=== PATIENT | female | born 1960 | race Caucasian/White ===

== ENCOUNTER → 2023-10-22 14:21 | Outpatient (REF) | payer MEDICARE, BC, SELFPAY | LOC: CLAB 14:21 | PROVIDERS: ATTENDING PHYSICIAN Otolaryngology | DX: H65.23 Chronic serous otitis media, bilateral (principal) | CPT/HCPCS: 87070; 87077; 87186 ==

== ENCOUNTER → 2023-12-04 10:54 | Outpatient (REF) | payer MEDICARE, BC, SELFPAY ==
[2023-12-04 12:08] LABS: % Basophils 0.4 % (0-2); % Eosinophils 2.2 % (0-6); % Immature Granulocytes 0.2 % (0-0.5); % Lymphocytes 25.6 % (20.5-51.1); % Monocytes 8.7 % (1.7-9.3); % Neutrophils 62.9 % (42.2-75.2); Absolute Eosinophils 0.2 10^3/uL (0-0.7); Absolute Lymphocytes 2.1 10^3/uL (1.2-3.4); Absolute Monocytes 0.7 10^3/uL (0.1-0.6); Absolute Neutrophils 5.3 10^3/uL (1.4-6.5); Hematocrit 47.8 % (37.0-47.0); Hemoglobin 15.9 g/dL (12.0-16.0); Mean Corp Hgb Conc. 33.3 g/dL (33.0-37.0); Mean Corpuscular Volume 90.2 fL (81.0-99.0); Mean Platelet Volume 9.9 fL (7.4-10.4); Nucleated Red Blood Cells % 0 %; Platelet Count 250 10^3/uL (130-400); White Blood Cell Count 8.4 10^3/uL (4.8-10.8)
[2023-12-04 12:23] LABS: Erythrocyte Sed Rate 8 mm/hour (0-20)
[2023-12-04 12:30] LABS: Microalbumin, Random Urine 1.9 mg/dl (0.6-1.7); Microalbumin/creatinine Ratio 11.5 mg/g
[2023-12-04 12:39] LABS: ALT (SGPT) 21 U/L (0-35); AST (SGOT) 20 U/L (14-36); Albumin 4.4 g/dl (3.5-5.0); Alkaline Phosphatase 143 U/L (38-126); Blood Urea Nitrogen 17 mg/dl (7-17); Calcium 9.7 mg/dl (8.4-10.2); Carbon Dioxide 26 mmol/L (22-30); Chloride 104 mmol/L (98-107); Glucose 89 mg/dl (70-99); HDL Cholesterol 49 mg/dl; LDL Cholesterol, Calculated 209 mg/dl; Potassium 5.5 mmol/L (3.5-5.1); Sodium 140 mmol/L (135-145); Total Bilirubin 0.4 mg/dl (0.2-1.3); Total Cholesterol 299 mg/dl (50-199); Total Protein 6.5 g/dl (6.3-8.2); Triglyceride 206 mg/dl (10-149); Very Low Density Lipoprotein 41 mg/dl (0-30); eGFR > 60.00
[2023-12-04 12:49] LABS: Total Iron Binding Capacity 267 ug/dl (265-497)
[2023-12-04 14:24] LABS: Glycohemoglobin (HgbA1c) 5.5 % (4.0-5.6)
== END ==
LOC: REG 10:54
PROVIDERS: ATTENDING PHYSICIAN Internal Medicine; FAMILY PHYSICIAN Family Medicine; OTHER PHYSICIAN Family Medicine
DX: L40.50 Arthropathic psoriasis, unspecified (principal); Z51.81 Encounter for therapeutic drug level monitoring; E78.2 Mixed hyperlipidemia; R73.03 Prediabetes; R74.8 Abnormal levels of other serum enzymes; E11.69 Type 2 diabetes mellitus with other specified complication; I10 Essential (primary) hypertension
CPT/HCPCS: 36415; 80053; 80061; 82043; 82570; 83036; 83550; 85025; 85652; 86140

== ENCOUNTER → 2023-12-30 11:22 | Outpatient (REF) | payer MEDICARE, BC, SELFPAY ==
[2023-12-30 12:48] LABS: ALT (SGPT) 22 U/L (0-35); AST (SGOT) 19 U/L (14-36); Albumin 4.5 g/dl (3.5-5.0); Alkaline Phosphatase 138 U/L (38-126); Blood Urea Nitrogen 16 mg/dl (7-17); Calcium 9.8 mg/dl (8.4-10.2); Carbon Dioxide 25 mmol/L (22-30); Chloride 106 mmol/L (98-107); Glucose 107 mg/dl (70-99); Potassium 4.9 mmol/L (3.5-5.1); Sodium 140 mmol/L (135-145); Total Bilirubin 0.4 mg/dl (0.2-1.3); Total Protein 6.6 g/dl (6.3-8.2); eGFR > 60.00
[2024-01-01 23:02] LABS: Quantiferon Mitogen minus NIL 9.96 IU/mL; Quantiferon NIL 0.04 IU/mL; Quantiferon TB Gold Plus Negative (Negative)
== END ==
LOC: REG 11:22
PROVIDERS: ATTENDING PHYSICIAN Internal Medicine; FAMILY PHYSICIAN Family Medicine
DX: E87.5 Hyperkalemia (principal); L40.50 Arthropathic psoriasis, unspecified; Z22.7 Latent tuberculosis; Z51.81 Encounter for therapeutic drug level monitoring
CPT/HCPCS: 36415; 80053; 86480

== ENCOUNTER → 2024-02-17 12:47 | Outpatient (REF) | payer MEDICARE, BC, SELFPAY ==
[2024-02-17 15:03] LABS: % Basophils 0.4 % (0-2); % Eosinophils 1.7 % (0-6); % Immature Granulocytes 0.2 % (0-0.5); % Lymphocytes 25.1 % (20.5-51.1); % Monocytes 7.4 % (1.7-9.3); % Neutrophils 65.2 % (42.2-75.2); Absolute Eosinophils 0.2 10^3/uL (0-0.7); Absolute Lymphocytes 2.8 10^3/uL (1.2-3.4); Absolute Monocytes 0.8 10^3/uL (0.1-0.6); Absolute Neutrophils 7.3 10^3/uL (1.4-6.5); Hematocrit 45.1 % (37.0-47.0); Hemoglobin 15.5 g/dL (12.0-16.0); Mean Corp Hgb Conc. 34.4 g/dL (33.0-37.0); Mean Corpuscular Hgb 29.6 pg (27.0-31.0); Mean Corpuscular Volume 86.2 fL (81.0-99.0); Mean Platelet Volume 9.5 fL (7.4-10.4); Nucleated Red Blood Cells % 0 %; Platelet Count 312 10^3/uL (130-400); Red Blood Cell Count 5.23 10^6/uL (4.20-5.40); Red Cell Dist. Width 13.2 % (11.5-14.5); White Blood Cell Count 11.2 10^3/uL (4.8-10.8)
[2024-02-17 15:27] LABS: ALT (SGPT) 20 U/L (0-35); AST (SGOT) 18 U/L (14-36); Albumin 4.6 g/dl (3.5-5.0); Alkaline Phosphatase 148 U/L (38-126); Blood Urea Nitrogen 14 mg/dl (7-17); Calcium 9.8 mg/dl (8.4-10.2); Carbon Dioxide 26 mmol/L (22-30); Chloride 106 mmol/L (98-107); Glucose 93 mg/dl (70-99); HDL Cholesterol 53 mg/dl; LDL Cholesterol, Calculated 224 mg/dl; Potassium 5.1 mmol/L (3.5-5.1); Sodium 139 mmol/L (135-145); Total Bilirubin 0.4 mg/dl (0.2-1.3); Total Cholesterol 314 mg/dl (50-199); Total Protein 6.5 g/dl (6.3-8.2); Triglyceride 189 mg/dl (10-149); Uric Acid 5.8 mg/dl (2.5-6.2); Very Low Density Lipoprotein 37 mg/dl (0-30); eGFR > 60.00
[2024-02-17 15:57] LABS: TSH Reflex To Free T4 1.83 uIU/ml (0.47-4.68)
[2024-02-18 08:35] LABS: Glycohemoglobin (HgbA1c) 5.4 % (4.0-5.6)
== END ==
LOC: WDC 12:47
PROVIDERS: ATTENDING PHYSICIAN Obstetrics & Gynecology Gynecology; FAMILY PHYSICIAN Family Medicine; REFERRING PHYSICIAN Internal Medicine
DX: Z78.0 Asymptomatic menopausal state (principal); Z12.31 Encounter for screening mammogram for malignant neoplasm of breast; E78.2 Mixed hyperlipidemia; F41.9 Anxiety disorder, unspecified; E11.9 Type 2 diabetes mellitus without complications; K59.09 Other constipation; E88.810 Metabolic syndrome
CPT/HCPCS: 36415; 77063; 77067; 77080; 80053; 80061; 83036; 84443; 84550; 85025

== ENCOUNTER → 2024-06-09 14:50 | Outpatient (REF) | payer MEDICARE, BC, SELFPAY | LOC: RAD 14:50 | PROVIDERS: ATTENDING PHYSICIAN Internal Medicine Cardiovascular Disease; FAMILY PHYSICIAN Family Medicine | DX: I73.9 Peripheral vascular disease, unspecified (principal) | CPT/HCPCS: 93922 ==

== ENCOUNTER 2024-06-23 10:56 | Outpatient (RCR) | payer MEDICARE, BC, SELFPAY ==
[2024-06-23 11:45] VITALS: BP 104/64
[2024-06-23] MEDS: LEQVIO 284 MG SC (11:45)
[2024-06-23 12:15] VITALS: BP 122/66
== END 2024-06-24 12:41 | disposition home or self-care (01) ==
LOC: OID 10:56
PROVIDERS: ATTENDING PHYSICIAN Nurse Practitioner; FAMILY PHYSICIAN Internal Medicine Cardiovascular Disease
DX: E78.01 Familial hypercholesterolemia (principal)
CPT/HCPCS: 96372; J1306

== ENCOUNTER → 2024-06-27 12:33 | Outpatient (REF) | payer MEDICARE, BC, SELFPAY ==
[2024-06-27 13:52] LABS: Blood Urea Nitrogen 16 mg/dl (7-17); Calcium 9.5 mg/dl (8.4-10.2); Carbon Dioxide 27 mmol/L (22-30); Chloride 102 mmol/L (98-107); Glucose 94 mg/dl (70-99); Potassium 4.2 mmol/L (3.5-5.1); Sodium 138 mmol/L (135-145); eGFR > 60.00
== END ==
LOC: REG 12:33
PROVIDERS: ATTENDING PHYSICIAN Surgery Vascular Surgery; FAMILY PHYSICIAN Family Medicine
DX: I73.9 Peripheral vascular disease, unspecified (principal)
CPT/HCPCS: 36415; 80048

== ENCOUNTER → 2024-07-04 12:45 | Outpatient (REF) | payer MEDICARE, BC, SELFPAY | LOC: RAD 12:45 | PROVIDERS: ATTENDING PHYSICIAN Surgery Vascular Surgery; FAMILY PHYSICIAN Family Medicine | DX: I77.9 Disorder of arteries and arterioles, unspecified (principal) | CPT/HCPCS: 75635; Q9967 ==

== ENCOUNTER → 2024-08-15 14:00 | Outpatient (REF) | payer MEDICARE, SELFPAY ==
[2024-08-15 15:29] LABS: Erythrocyte Sed Rate 16 mm/hour (0-20)
[2024-08-15 15:53] LABS: % Basophils 0.3 % (0-2); % Eosinophils 1.2 % (0-6); % Immature Granulocytes 0.3 % (0-0.5); % Lymphocytes 16.1 % (20.5-51.1); % Monocytes 7.8 % (1.7-9.3); % Neutrophils 74.3 % (42.2-75.2); Absolute Eosinophils 0.2 10^3/uL (0-0.7); Absolute Immature Granulocytes 0.1 10^3/uL (0-0.05); Absolute Lymphocytes 2.5 10^3/uL (1.2-3.4); Absolute Monocytes 1.2 10^3/uL (0.1-0.6); Absolute Neutrophils 11.3 10^3/uL (1.4-6.5); Hematocrit 46.6 % (37.0-47.0); Hemoglobin 15.5 g/dL (12.0-16.0); Mean Corp Hgb Conc. 33.3 g/dL (33.0-37.0); Mean Corpuscular Hgb 29.5 pg (27.0-31.0); Mean Corpuscular Volume 88.6 fL (81.0-99.0); Mean Platelet Volume 9.2 fL (7.4-10.4); Nucleated Red Blood Cells % 0 %; Platelet Count 349 10^3/uL (130-400); Red Blood Cell Count 5.26 10^6/uL (4.20-5.40); White Blood Cell Count 15.2 10^3/uL (4.8-10.8)
[2024-08-15 17:07] LABS: ALT (SGPT) 23 U/L (0-35); AST (SGOT) 19 U/L (14-36); Albumin 4.8 g/dl (3.5-5.0); Alkaline Phosphatase 150 U/L (38-126); Blood Urea Nitrogen 19 mg/dl (7-17); Calcium 9.8 mg/dl (8.4-10.2); Carbon Dioxide 27 mmol/L (22-30); Chloride 101 mmol/L (98-107); Glucose 101 mg/dl (70-99); Potassium 4.9 mmol/L (3.5-5.1); Sodium 140 mmol/L (135-145); Total Bilirubin 0.6 mg/dl (0.2-1.3); Total Protein 6.6 g/dl (6.3-8.2); eGFR > 60.00
== END ==
LOC: REG 14:00
PROVIDERS: ATTENDING PHYSICIAN Internal Medicine; FAMILY PHYSICIAN Chiropractor
DX: L40.50 Arthropathic psoriasis, unspecified (principal); L40.59 Other psoriatic arthropathy; D80.1 Nonfamilial hypogammaglobulinemia; B20 Human immunodeficiency virus [HIV] disease
CPT/HCPCS: 36415; 80053; 85025; 85652; 86140

== ENCOUNTER → 2024-08-24 13:56 | Outpatient (REF) | payer MEDICARE, BC, SELFPAY | LOC: HWRAD 13:56 | PROVIDERS: ATTENDING PHYSICIAN Internal Medicine Cardiovascular Disease; FAMILY PHYSICIAN Family Medicine | DX: R06.09 Other forms of dyspnea (principal); Z01.818 Encounter for other preprocedural examination | CPT/HCPCS: 71046 ==

== ENCOUNTER → 2024-08-25 10:05 | Outpatient (REF) | payer MEDICARE, BC, SELFPAY | LOC: RCS 10:05 | PROVIDERS: ATTENDING PHYSICIAN Internal Medicine Cardiovascular Disease; FAMILY PHYSICIAN Family Medicine | DX: E78.01 Familial hypercholesterolemia (principal); Z01.818 Encounter for other preprocedural examination; I73.9 Peripheral vascular disease, unspecified; R73.01 Impaired fasting glucose; R06.09 Other forms of dyspnea | CPT/HCPCS: 93306 ==

== ENCOUNTER → 2024-08-26 07:46 | Outpatient (REF) | payer MEDICARE, BC, SELFPAY | LOC: HWRCS 07:46 | PROVIDERS: ATTENDING PHYSICIAN Internal Medicine Cardiovascular Disease; FAMILY PHYSICIAN Family Medicine | DX: E78.01 Familial hypercholesterolemia (principal); Z01.818 Encounter for other preprocedural examination; I73.9 Peripheral vascular disease, unspecified; R73.01 Impaired fasting glucose; R94.31 Abnormal electrocardiogram [ECG] [EKG] | CPT/HCPCS: 78452; 93017; A9500; J2785 ==

== ENCOUNTER 2024-08-30 08:52 | Inpatient (IN) | payer MEDICARE, BC, SELFPAY ==
[2024-08-25 09:17] VITALS: BMI 30.5
[2024-08-25 09:52] LABS: APTT 28.3 Sec (23.4-35.0); INR 0.98; PT 13.4 Sec (11.4-14.6)
[2024-08-25 10:01] LABS: % Basophils 0.3 % (0-2); % Eosinophils 1.4 % (0-6); % Immature Granulocytes 0.3 % (0-0.5); % Lymphocytes 13.4 % (20.5-51.1); % Monocytes 7.8 % (1.7-9.3); % Neutrophils 76.8 % (42.2-75.2); Absolute Eosinophils 0.2 10^3/uL (0-0.7); Absolute Immature Granulocytes 0.1 10^3/uL (0-0.05); Absolute Lymphocytes 2.1 10^3/uL (1.2-3.4); Absolute Monocytes 1.2 10^3/uL (0.1-0.6); Absolute Neutrophils 11.8 10^3/uL (1.4-6.5); Mean Corp Hgb Conc. 32.6 g/dL (33.0-37.0); Mean Corpuscular Volume 88.8 fL (81.0-99.0); Mean Platelet Volume 9.4 fL (7.4-10.4); Nucleated Red Blood Cells % 0 %; Platelet Count 338 10^3/uL (130-400); Red Blood Cell Count 5.18 10^6/uL (4.20-5.40); White Blood Cell Count 15.3 10^3/uL (4.8-10.8)
[2024-08-25 10:10] LABS: Blood Urea Nitrogen 20 mg/dl (7-17); Calcium 9.3 mg/dl (8.4-10.2); Carbon Dioxide 26 mmol/L (22-30); Chloride 103 mmol/L (98-107); Estimated Creatinine Clearance 91 ml/min; Glucose 98 mg/dl (70-99); Potassium 4.2 mmol/L (3.5-5.1); Sodium 139 mmol/L (135-145); eGFR > 60.00
--- NOTE | 2024-08-25 14:39 | PTCARENOTE ---
Abnormal WBC 15.3 collected 08/25/24, reported to Jayne at Dr Pope's office.
[2024-08-30] VITALS (13 sets, daily range): BP systolic 76–124; BP diastolic 46–106; BMI 30.4
[2024-08-30] MEDS: PERIDEX 0.12% ORAL RINSE 15 ML PO (09:08)
[2024-08-30] MEDS: BACTROBAN NASAL 1 GRAM NASAL (09:09)
--- NOTE | 2024-08-30 09:55 | W.SUR.PREOP ---
Pre-Operative Surgical Note
-
I have examined this patient prior to the performance of the scheduled procedure.
The patient's condition is unchanged from the time of the current History and
Physical and the patient is able to undergo the scheduled procedure.
[2024-08-30] MEDS: LOW STRENGTH ASPIRIN 81 MG PO (10:15)
[2024-08-30 10:29] LABS: Glucose - Point of Care 102 mg/dl (70-99)
[2024-08-30 12:43] LABS: ACT-LR - POC 247 Seconds (116-155)
[2024-08-30 13:33] LABS: ACT-LR - POC 244 Seconds (116-155)
--- NOTE | 2024-08-30 13:50 | CON.INTV ---
Consultation
Consultation Request
Date/Time Consultation Requested: 08/30/2024 - 1306
Date/Time Consultation Performed: 08/30/2024 - 0
Requesting Provider: JULIO Finn
Performing Provider: Dr. Morel
Reason for Consultation: s/p EVAR
Medical History
-
Chief Complaint: Elective EVAR
History of Present Illness:
63-year-old female with a past medical history of PAD, history of gastric ulcers, Hx of EAMON no longer on CPAP given resolution of EAMON, non-Hodgkin's lymphoma s/p chemo, hypercholesterolemia, back pain with history of herniated discs, and DM type II
who presents with elective EVAR. Patient known to the vascular surgery service with last visit on 07/13/[address] Pope. Patient's recent CTA abdominal aorta with runoff shows advanced aortic atherosclerotic disease with moderate stenosis of the
infrarenal aorta and high-grade stenosis of the celiac axis, with occlusion of the right common iliac artery and stenosis of the left common iliac artery. Endovascular intervention was reviewed and patient has agreed for a procedure. Today she
underwent an endovascular aneurysm repair with stent placement in the right iliac artery, with EBL 50 cc and no complications. She was transferred to the ICU postoperatively and supervisor nuclear medicine services consulted for additional
management/recommendations.
When I saw the patient she was resting in bed in no acute distress. Has some pain at the right femoral region. Heart rate 74, BP via right radial A-line: 104/52, BP via NIBP: 101/55 and saturating 96% on room air. She has some pain at the right
femoral region but otherwise denies chest pain, SOB, CHOUDHURY, nausea, fevers or chills.
PMHx: Psoriatic arthritis, history of gastric ulcers, Hx of EAMON no longer on CPAP given resolution of EAMON, history of PE, history of diverticulitis, non-Hodgkin's lymphoma s/p chemo, hypercholesterolemia, PAD, back pain with history of herniated
discs, DM type II
PSHx: Partial thyroidectomy, breast biopsy, endometrial ablation, D&C with hysteroscopy, colon resection for diverticulitis, cervical spine + lumbar spine fusion, Mohs procedure
Past Medical History
Past Medical History: Other (Above as per HPI)
Past Surgical History: Other (Above as per HPI)
Social History
Tobacco: Former Smoker
Alcohol: None
Drug: None
Family History
Family History: CAD (Father), Cancer (Mother: Colon cancer) and Other (Mother: Alzheimer's disease; Maternal grandmother: Stroke + osteoporosis)
Allergies / Home Medications
Allergies
Allergy/AdvReac Type Severity Reaction Status Date / Time
levofloxacin Allergy Hives Verified 08/30/24 15:20
morphine Allergy Shortness Verified 08/30/24 09:17
of Breath
Home Medications
�Medication �Instructions �Recorded �Confirmed �Last Taken �Type
aspirin 81 mg capsule 81 mg PO DAILY 06/23/24 08/30/24 08/29/24 09:30 History
duloxetine 60 mg capsule,delayed 60 mg PO DAILY 08/18/24 08/30/24 08/29/24 09:30 History
release
ibuprofen 200 mg tablet (Advil) 400 mg PO Q6H PRN pain 08/18/24 08/30/24 08/29/24 09:30 History
inclisiran 284 mg/1.5 mL 284 mg SC [id number] 08/18/24 08/30/24 06/28/24 09:30 History
subcutaneous syringe (Leqvio)
prednisone 5 mg tablet 5 mg PO DAILY 08/18/24 08/30/24 08/29/24 09:30 History
semaglutide 1 mg/dose (4 mg/3 mL) 1 mg SC SA 08/18/24 08/30/24 08/20/24 10:00 History
subcutaneous pen injector (Ozempic)
metformin 500 mg tablet,extended 500 mg PO BID Diabetes 08/30/24 08/30/24 08/28/24 21:00 History
release 24 hr
Review of Systems
-
History Source: Patient
All other systems: Negative unless noted
Vitals / Labs / Diagnostic Testing
Vital Signs
Temp Pulse Resp BP Pulse Ox
97.9 F 65 21 95/46 95
08/30/24 15:55 08/30/24 15:45 08/30/24 15:30 08/30/24 15:00 08/30/24 15:45
Lab Data
08/30/24 14:20
Diagnostic Testing:
Physical Exam
-
HEENT: Normocephalic and Anicteric
Cardiovascular: S1/S2 and Peripheral Edema (negative)
Respiratory: Wheeze (negative), Rales (negative), Rhonchi (negative) and Non-Labored Respirations
GI: Soft, Non Distended, Non Tender and Normal Bowel Sounds
Neurology: AO x 3 and Tremors (negative)
Skin: Warm and Dry
General: Respiratory Distress (negative), Comfortable, Fever (negative) and Chills (negative)
Assessment
-
Assessment: 63-year-old female with a past medical history of PAD, history of gastric ulcers, Hx of EAMON no longer on CPAP given resolution of EAMON, non-Hodgkin's lymphoma s/p chemo, hypercholesterolemia, back pain with history of herniated discs,
and DM type II who presents with elective EVAR. Patient known to the vascular surgery service with last visit on 07/13/[address] Pope. Patient's recent CTA abdominal aorta with runoff shows advanced aortic atherosclerotic disease with moderate
stenosis of the infrarenal aorta and high-grade stenosis of the celiac axis, with occlusion of the right common iliac artery and stenosis of the left common iliac artery. Endovascular intervention was reviewed and patient has agreed for a
procedure. On 08/30/2024, she underwent an endovascular aneurysm repair with stent placement in the right iliac artery, with EBL 50 cc and no complications. She was transferred to the ICU postoperatively and supervisor nuclear medicine services consulted for
additional management/recommendations.
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
history of herniated discs, DM type II
Impression:
#Aortic atherosclerotic disease with occluded right iliac artery s/p EVAR with stent placement in the right iliac artery (POD #0)
#Leukocytosis likely reactive
#Hx of EAMON no longer on CPAP given resolution of EAMON
#History of non-Hodgkin's lymphoma s/p chemotherapy
#Back pain with history of herniated disks
#DM type II
Plan:
Postoperative surgical intensive care unit monitoring
Supplemental oxygen as needed to maintain SpO2 >90-94%
prn nebulized bronchodilators � not currently bronchospastic
Incentive spirometry encouraged 10x per hour for at least 4 hrs a day
Aspiration precautions
Pain control
Neuro and vascular checks per protocol
Maintain MAP>65
Replete electrolytes with K>4, Mg>2
Maintain euglycemia with goal BG 140-180
Vascular surgery following-correspondence and operative notes reviewed
Transfuse blood products as needed to keep Hb>7g/dL, and plt>50k (given post-operative status)
DVT prophylaxis
Early nutrition
Early mobilization
Critical care statement: A total of 44 minutes of critical care time was provided for this patient today. This includes management of unstable vital signs, evaluation of the patient at bedside, reviewing the patient's pertinent medical records
including radiographs, microbiology, laboratory evaluations, and discussion with primary team, consultants, pharmacy, nutrition, physical therapy, case management, charge nurse, critical care nursing, and respiratory therapy.
--- NOTE | 2024-08-30 13:50 | W.IMMPOSTOP ---
Surgical Immed Post Op Note
-
Primary Surgeon: Niko
Assisting Surgeon: Nicole
Pre-op Diagnosis: aortic atherosclerotic disease, occluded R iliac artery
Post-op Diagnosis: aortic atherosclerotic disease, occluded R iliac artery
Procedure Performed: EVAR
Anesthesia Type: General
Specimen / Cultures: None
Estimated Blood Loss: 50 cc
Complications: None
Operative Findings: EVAR with stent in R iliac artery
[2024-08-30 14:26] LABS: Glucose - Point of Care 129 mg/dl (70-99)
[2024-08-30 14:29] LABS: Hematocrit 36.8 % (37.0-47.0); Hemoglobin 12.5 g/dL (12.0-16.0); Mean Corpuscular Hgb 29.3 pg (27.0-31.0); Mean Corpuscular Volume 86.4 fL (81.0-99.0); Mean Platelet Volume 9.2 fL (7.4-10.4); Platelet Count 276 10^3/uL (130-400); Red Blood Cell Count 4.26 10^6/uL (4.20-5.40); Red Cell Dist. Width 13.2 % (11.5-14.5); White Blood Cell Count 14.7 10^3/uL (4.8-10.8)
[2024-08-30] MEDS: SUBLIMAZE 25 MCG IV (14:42)
[2024-08-30 14:44] LABS: Blood Urea Nitrogen 13 mg/dl (7-17); Calcium 8.6 mg/dl (8.4-10.2); Carbon Dioxide 23 mmol/L (22-30); Chloride 107 mmol/L (98-107); Estimated Creatinine Clearance 106 ml/min; Glucose 114 mg/dl (70-99); Potassium 4.3 mmol/L (3.5-5.1); Sodium 138 mmol/L (135-145); eGFR > 60.00
[2024-08-30] MEDS: DILAUDID 0.5 MG IV ×3 (15:28→23:55)
[2024-08-30 16:08] LABS: ALT (SGPT) 18 U/L (0-35); AST (SGOT) 14 U/L (14-36); Albumin 4.4 g/dl (3.5-5.0); Alkaline Phosphatase 134 U/L (38-126); Direct Bilirubin 0.2 mg/dl (0.0-0.4); Total Bilirubin 0.7 mg/dl (0.2-1.3); Total Protein 6.1 g/dl (6.3-8.2)
[2024-08-30] MEDS: NSS IV (16:34)
--- NOTE | 2024-08-30 16:37 | PTCARENOTE ---
arrived via bed from PACU 1515, pulses confirmed, groin sites intact, punctures with glue, soft, no hematoma. notes pain, c/o bed position and back pain, positioned as able, flat until 1600. see admission assessment. Vascular FISH AND GAME CLUB MANAGER in room, aware of
pain, evaluated abdomen, will add extra HH this pm. IV fluids maintained, c/o discomfort at art line site, congruent with cuff pressures, arm board placed for positional line at times. family presently visiting. pain improved with bed elevation
when allowed at 1600, mild bend in knee for comfort, warm blanket to abdomen with good effect. call roa in reach, tolerating clear liquids at this time.
[2024-08-30] MEDS: NOVOLOG FLEXPEN-LOW RESISTANCE SC (16:57)
[2024-08-30 17:03] LABS: Glucose - Point of Care 134 mg/dl (70-99)
[2024-08-30 17:23] LABS: Hematocrit 37.4 % (37.0-47.0); Hemoglobin 12.6 g/dL (12.0-16.0)
--- NOTE | 2024-08-30 18:02 | OR.RPT ---
Operative Report
Operative Report
Date of Operation: 08/30/2024
Pre Op Diagnosis:
1. Diffuse atherosclerotic disease involving the infrarenal aorta
2. Right common iliac artery occlusion
Post Op Diagnosis:
1. Diffuse atherosclerotic disease involving the infrarenal aorta
2. Right common iliac artery occlusion
Procedure:
1. Aortoiliac stent grafting with Endologix AFX device (25-70/16-30 main body; 28-75 suprarenal extension)
2. Balloon angioplasty and stenting of right distal common iliac artery and iliac bifurcation (8 mm x 37 mm express LD)
3. Introduce wire and catheter to aorta from bilateral femoral artery access
4. Ultrasound guided percutaneous access to the bilateral common femoral arteries
5. Pro-glide closure of bilateral femoral artery access sites
Surgeon: Aleksander Pope III, MD
Envelope Sealer: Hermes Rivera MD PGY1
Anesthesia: General
Complications: None
Estimated Blood Loss: 50 cc
History and Indications for Procedure: 63-year-old female with severe aortoiliac occlusive disease. She was brought to the operating room for endovascular intervention.
Procedure in Detail: Scarlett Uriarte was correctly identified and placed supine on the operating table. After adequate induction of anesthesia the abdomen, pelvis and bilateral groins were positioned, prepped and draped in the usual sterile
fashion. Preoperative antibiotics were administered. A timeout procedure was performed with the nursing and anesthesia staff confirming the patients identity as well as the nature and laterality of the procedure.
Under ultrasound guidance, bilateral femoral artery sheath access was obtained. The arteries were patent. A pre-close technique was performed on the left femoral artery access with 2 offset Proglide closure devices. The sutures were secured and
tucked under surgical towels for use at the end of the case. A 5 Fr sheath was placed into the right femoral access. An 8 Fr sheath was placed into the left femoral access. The patient was systemically heparinized.
From the left femoral access a SciQuestson wire and burnham's hook catheter was advanced into the distal abdominal aorta. An aortoiliac arteriogram coupled with a simultaneous retrograde iliac arteriogram from the right femoral sheath was performed to
clearly visualize the right iliac artery occlusion.
I was unable to successfully cross the right common iliac artery occlusion in a retrograde fashion. I was however able to advance through the occlusion successfully from an up and over approach using a stiff Glidewire and burnham's hook catheter.
I upsized to a 7 Monegasque sheath on the right. I then successfully snared the stiff Glidewire up and over and pulled it out the 7 Monegasque sheath thereby obtaining cross body femoral wire access. I predilated the right common iliac artery occlusion
with a 4 mm angioplasty balloon. Following this I was able to advance a catheter retrograde over the stiff Glidewire from the right femoral access to the aortic bifurcation. This catheter was rewired and advanced into the abdominal aorta. The
wire from the left femoral sheath was then readvanced into the proximal descending thoracic aorta. The wire was exchanged out through a quick cross catheter for a Lunderquist wire.
Over the Lunderquist wire in the left femoral access I placed the AFX introducer sheath and advanced the radio-opaque sheath tip to the abdominal aorta. An En-Snare catheter was placed over a Bentson wire from the right femoral access and advanced
to the distal abdominal aorta. The En-Snare was then advanced through to the catheter tip.
The contralateral limb wire of the AFX2 main body was introduced through the introducer sheath and advanced to the aortic bifurcation. The 25-70/16-30 AFX2 bifurcated main body was then loaded onto the Lunderquist wire and advanced through the
introducer sheath. The wire was snared from the contralateral side and pulled out the right femoral access and the AFX2 main body was advanced until the limbs were above the aortic bifurcation. The entire system was then pulled down onto the aortic
bifurcation. The main body was then deployed by pulling the control cord.
The contralateral limb was then deployed by pulling the yellow limb cover. Once this was completed I advanced a pigtail catheter over the contralateral limb wire until the tip was in contact with the wire lock. The contralateral limb was then pulled
as I advanced the pigtail up to release it from the wire lock. The right iliac limb deployed and the previously occluded right common iliac segment. This did not fully open on deployment. I placed a wire into the pigtail catheter. I then
advanced an 8 mm angioplasty balloon over the wire from the right femoral access and into the right iliac limb. I profiled the limb with the 8 mm balloon by inflating it to nominal pressure. This provided a nice result. I then readvanced a
pigtail catheter over the wire into the proximal abdominal aorta. The wire was removed and the pigtail connected to the power injector.
The ipsilateral limb was deployed by pinning the inner core and retracting the AFX introducer sheath.
Carefully the dilator was reinserted through the 17 Monegasque introducer sheath on the left. The sheath and dilator were advanced through the main body device into the more proximal abdominal aorta. Through the introducer sheath I advanced a 28�75
supra renal endograft extension and performed an arteriogram to clearly visualize the renal arteries. The stent was positioned appropriately below the renal arteries and deployed under roadmap guidance and magnification view in the desired location.
A retrograde arteriogram was performed on the right. A 8 mm x 37 mm express LD stent was placed on the right side. This stent reinforced the iliac limb but was carried distally to the iliac bifurcation to treat the entire length of previously
occluded right common iliac artery. A subsequent arteriogram was performed retrograde through the right femoral sheath and demonstrated an excellent technical result with a widely patent right iliac limb and stent, patent iliac bifurcation and
patent external iliac artery.
A Coda on the left balloon was introduced and used to profile the proximal and distal seal zones as well as all areas of overlap.
A completion aortogram demonstrated an excellent technical result. There was brisk flow through the aortic main body stent and iliac limbs. The renal arteries were widely patent bilaterally.
Satisfied with this result we then concluded the procedure. The Proglide sutures were secured on the left after removing the sheath and wire. A single Pro-glide closure device was positioned and deployed on the right femoral access. The knots
were secured. Protamine was administered. Additional pressure was applied to the puncture sites bilaterally for 5 minutes. Hemostasis was achieved bilaterally.
Sterile skin glue was applied to the access sites bilaterally
The patient tolerated the procedure well and was taken to the PACU in stable condition.
Attestation: I was present and responsible for the entire procedure
Signed:
Aleksander Pope III, MD
[facility]
[phone] (mnea)
[2024-08-30 18:31] LABS: Hepatitis C Antibody Negative (Negative)
--- NOTE | 2024-08-30 18:32 | PTCARENOTE ---
no change, vascular checks as noted, much more comfortable. Repeat HH obtained and IT RISK AND ASSURANCE MANAGER Susana and Dr. Pope updated, no new orders at this time. Pt declined statin, takes injectable, note placed in MAR for am.
[2024-08-30 19:01] LABS: Phosphorus 4.6 mg/dl (2.5-4.5)
[2024-08-30] MEDS: XARELTO 2.5 MG PO (19:57)
--- NOTE | 2024-08-30 20:00 | PTCARENOTE ---
Rec'd pt resting in bed, c/o severe R LQ pain above puncture site from surgery- Esme De Los Santos, KIKO notified & in to see pt, Esme De Los Santos Np notified Dr Perez, stat ultrasound ordered; pt oriented, anxious, dilaudid 0.5 mg iv given, SR/ Sinus shanice, R rad
myranda w/ good wave form, flushes well, accurate to cuff, zeroed, bilat groin surgical sites intact, no hematoma, distal pulses via doppler,no edema, RA, lungs decr in bases, sat 96,reaches 1500ml on IS, + bowel sounds, no bm, abd obese, soft, tender
RLQ, no n/v, celina liquids, thermister sahu draining yellow urine
--- NOTE | 2024-08-30 20:11 | W.PN.UPDATE ---
Update Note
Progress Note Update
1999- Patient having severe pain in right lower abdomen above the surgical insertion site. S/p EVAR with stent placement in the right iliac artery, ultrasound guided percutaneous access to the bilateral common femoral arteries. Light touch to the
area, patient jumps in pain, stating it is severe pain10/10 and tenderness. Will give Dilaudid IV now. Called Dr. Perez, recommendations received for STAT US right groin, vascular to rule out pseudoaneurysm. Called US ammonia technician to come in for
US STAT per Dr. Perez.
--- NOTE | 2024-08-30 21:00 | PTCARENOTE ---
Ultrasound at bedside
--- NOTE | 2024-08-30 22:00 | PTCARENOTE ---
Esme De Los Santos NP spoke w/ Dr Perez re Ultrasound results, no new orders, pain now 3-4
[2024-08-30 22:38] LABS: Glucose - Point of Care 134 mg/dl (70-99)
[2024-08-31] VITALS (18 sets, daily range): BP systolic 77–138; BP diastolic 41–78; PULSE 61–70; BMI 30.9
--- NOTE | 2024-08-31 | PTCARENOTE ---
sys reviewed, dilaudid 0.5 mg iv given for RLQ pain, CHG bath done, linens changed
[2024-08-31] MEDS: NSS 1000 IV ×2 (01:11→02:53)
--- NOTE | 2024-08-31 01:11 | PTCARENOTE ---
Esme De Los Santos NP aware of bp 91/40, map 55, 1 liter nss hung over 1hr per order
[2024-08-31 03:49] LABS: Hematocrit 33.9 % (37.0-47.0); Hemoglobin 11.4 g/dL (12.0-16.0); Mean Corp Hgb Conc. 33.6 g/dL (33.0-37.0); Mean Corpuscular Hgb 29.2 pg (27.0-31.0); Mean Corpuscular Volume 86.9 fL (81.0-99.0); Mean Platelet Volume 9.4 fL (7.4-10.4); Platelet Count 266 10^3/uL (130-400); Red Cell Dist. Width 13.1 % (11.5-14.5); White Blood Cell Count 19.8 10^3/uL (4.8-10.8)
[2024-08-31 03:58] LABS: PT 14.5 Sec (11.4-14.6)
[2024-08-31 03:59] LABS: APTT 33.6 Sec (23.4-35.0)
[2024-08-31] MEDS: DILAUDID 0.5 MG IV (04:09)
--- NOTE | 2024-08-31 04:10 | PTCARENOTE ---
sys reviewed, changes noted, dilaudid 0.5mg iv given for pain
[2024-08-31 04:18] LABS: Blood Urea Nitrogen 10 mg/dl (7-17); Calcium 8.2 mg/dl (8.4-10.2); Carbon Dioxide 20 mmol/L (22-30); Chloride 110 mmol/L (98-107); Estimated Creatinine Clearance 107 ml/min; Glucose 109 mg/dl (70-99); Potassium 3.9 mmol/L (3.5-5.1); Sodium 137 mmol/L (135-145); eGFR > 60.00
[2024-08-31] MEDS: LOW STRENGTH ASPIRIN 81 MG PO (08:14)
[2024-08-31] MEDS: NOVOLOG FLEXPEN-LOW RESISTANCE SC ×2 (08:14→13:05)
[2024-08-31] MEDS: DELTASONE 5 MG PO (08:14)
[2024-08-31] MEDS: XARELTO 2.5 MG PO ×2 (08:14→19:36)
[2024-08-31] MEDS: CYMBALTA DELAYED RELEASE 60 MG PO (08:14)
--- NOTE | 2024-08-31 08:20 | W.PN.INTV ---
Today's Communication / Plan
Recommendations
Patient was started on hydrocortisone today per vascular surgery
Holding her home dose of prednisone for now
Continue with Xarelto
Up OOB as Toller
PT/OT
Encouraged incentive spirometer use
Pain control
Continue ICU level of care and defer discharge home versus downgrade to vascular
Assessment
-
Assessment: 63-year-old female with a past medical history of PAD, history of gastric ulcers, Hx of EAMON no longer on CPAP given resolution of EAMON, non-Hodgkin's lymphoma s/p chemo, hypercholesterolemia, back pain with history of herniated discs,
and DM type II who presents with elective EVAR. Patient known to the vascular surgery service with last visit on 07/13/[address] Pope. Patient's recent CTA abdominal aorta with runoff shows advanced aortic atherosclerotic disease with moderate
stenosis of the infrarenal aorta and high-grade stenosis of the celiac axis, with occlusion of the right common iliac artery and stenosis of the left common iliac artery. Endovascular intervention was reviewed and patient has agreed for a
procedure. On 08/30/2024, she underwent an endovascular aneurysm repair with stent placement in the right iliac artery, with EBL 50 cc and no complications. She was transferred to the ICU postoperatively and power brake operator services consulted for
additional management/recommendations.
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
history of herniated discs, DM type II
Impression:
#Aortic atherosclerotic disease with occluded right iliac artery s/p EVAR with stent placement in the right iliac artery (POD #1)
#Leukocytosis likely reactive
#Hx of EAMON no longer on CPAP given resolution of EAMON
#History of non-Hodgkin's lymphoma s/p chemotherapy
#Back pain with history of herniated disks
#DM type II
Plan:
Postoperative surgical intensive care unit monitoring
Supplemental oxygen as needed to maintain SpO2 >90-94%
prn nebulized bronchodilators � not currently bronchospastic
Incentive spirometry encouraged 10x per hour for at least 4 hrs a day
Aspiration precautions
Pain control
Neuro and vascular checks per protocol
Maintain MAP>65
Replete electrolytes with K>4, Mg>2
Maintain euglycemia with goal BG 140-180
Vascular surgery following-correspondence and operative notes reviewed
Transfuse blood products as needed to keep Hb>7g/dL, and plt>50k (given post-operative status)
Patient was found to be orthostatic positive today so she will continue to be in the ICU for further monitoring. Deferred downgrade versus discharge home to vascular surgery.
DVT prophylaxis
Early nutrition
Early mobilization
Total time spent today was 78 minutes for this encounter. Time includes reviewing laboratory test/imaging results, reviewing pertinent medical records, obtaining and reviewing medical history, performing an appropriate exam, ordering medications,
tests and procedures. Time also includes documentation of this encounter, coordinating patient care and communicating with other healthcare professionals. Total time does not include separately billed tests performed on this date of service.
Subjective Dataa
Subjective Data
Date of Service:
Date of Service: August 31, 2024
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
Subjective:
Seen and evaluated this AM. On room air this AM, breathing comfortably. HR 69. She may be going home today. Still has some pain at her R-groin --> CAT A/P does not show evidence for RP bleed or groin hematoma. Heart rate 85 and SpO2 90%.
Review of Systems
General: Other (Negative unless mentioned above)
Objective Data
Data Reviewed
Vital Signs / I&O / Oxygen:
Vital Signs
Temp Pulse Resp BP Pulse Ox
98.4 F 64 16 107/56 98
08/31/24 09:18 08/31/24 09:00 08/31/24 09:00 08/31/24 03:31 08/31/24 09:00
Intake and Output
08/30/24 08/31/24 09/01/24
06:59 06:59 06:59
Intake Total 3910 / 3990 240 / 240
Output Total 2710 / 2860 450 / 450
Balance 1200 / 1130 -210 / -210
SaO2 98
Physical Exam
General: Respiratory Distress (negative), Comfortable, Chills (negative) and Sweats (negative)
HEENT: Normocephalic and Anicteric
Cardiovascular: S1-S2 and Peripheral Edema (negative)
Respiratory: Wheeze (negative), Crackles (negative), Rhonchi (negative) and Non-Labored Respirations
GI: Soft, Non Distended, Non Tender and Normal Bowel Sounds
Neurology: AO x 3 and Tremors (negative)
Skin: Warm, Dry and Other (Mild tenderness to palpation in the right groin region)
Labs/Micro/Reports
Lab Data
08/31/24 03:29
08/31/24 03:29
Laboratory Results
08/31/24
03:29
PT 14.5
INR 1.10
APTT 33.6
[2024-08-31 08:24] LABS: Glucose - Point of Care 97 mg/dl (70-99)
--- NOTE | 2024-08-31 08:29 | W.PN.VS ---
Addendum entered and electronically signed by Aleksander Pope III, MD 08/31/24 10:28:
This patient was seen and examined in collaboration with JULIO Coronado. I agree with the history and physical exam as well as the assessment and plan. I have the following additions:
Patient complaining of right groin/lower quadrant discomfort
Intermittent
Groin ultrasound overnight negative for hematoma or pseudoaneurysm
We performed CT angiogram given her complaints. The stent graft is patent and in good position. She does have new right lower pole kidney infarcts likely related to embolization from the soft aortic plaque during endovascular device delivery and
balloon profiling. There is no contrast extravasation in the right pelvis. There is no evidence of retroperitoneal hematoma. The right iliac system is patent. The right femoral access is patent and without hematoma or pseudoaneurysm. There is a
focal area of ectasia at the origin of the right internal iliac artery which was demonstrated on the arteriogram yesterday as well as on the preoperative CTA. No extravasation is identified from this area.
On physical exam she is well-appearing
No acute distress
Abdomen is soft and nontender
Groins are soft and nontender bilaterally
Robust Doppler signals present bilaterally in the feet
Labs reviewed
Plan for removal of arterial line
Remove Pope catheter
Compass protocol
Regular diet and ambulate
If successfully meets milestones today there may be an opportunity for discharge this afternoon
Signed:
Aleksander Pope III, MD
[facility] Vascular Surgery
[phone] (cell)
Original Note:
Today's Communication / Plan
-
Seen and assessed with Dr. Pope
Assessment/Plan
-
POD1
Aortoiliac stent grafting with Endologix AFX device (25-70/16-30 main body; 28-75 suprarenal extension)
Balloon angioplasty and stenting of right distal common iliac artery and iliac bifurcation (8 mm x 37 mm express LD)
Pro-glide closure of bilateral femoral artery access sites
Plan:
-CTA abdomen/pelvis to rule out bleed, low suspicion
-DC A-line
-DC Pope catheter
-Out of bed/ambulate
Subjective Data
-
Date of Service: August 31, 2024
Patient seen at bedside this a.m. Patient complains of mild 'ache' to the right groin. Patient complains that she did not sleep all night. She did have an ultrasound last evening for increased pain of the right groin site which was negative.
Objective Data
-
Vital Signs
Temp Pulse Resp BP Pulse Ox
97.7 F 71 17 107/56 96
08/31/24 04:00 08/31/24 06:00 08/31/24 06:00 08/31/24 03:31 08/31/24 06:00
Intake and Output
08/30/24 08/31/24 09/01/24
06:59 06:59 06:59
Intake Total 3910 / 3910
Output Total 2710 / 2710
Balance 1200 / 1200
Intake:
Oral fluids 1580 / 1580
IV fluids (Total) 2330 / 2330
NSS bolus 1000 / 1000
Nss 1,000 ml @ 80 mls/hr IV . 1280 / 1280
[id number] [facility] Rx#:[id number]
normosol 50 / 50
Output:
Urine, Pope 2710 / 2710
Lab Results
08/31/24 03:29
08/31/24 03:29
Calcium 8.2 mg/dl (8.4-10.2) L 08/31/24 03:29
Phosphorus 4.6 mg/dl (2.5-4.5) H 08/30/24 17:09
Magnesium 2.0 mg/dl (1.6-2.3) 08/30/24 17:09
Total Bilirubin 0.7 mg/dl (0.2-1.3) 08/25/24 09:
Direct Bilirubin 0.2 mg/dl (0.0-0.4) 08/25/24:
AST 14 U/L (14-36) 08/25/24:
ALT 18 U/L (0-35) 08/25/24:
Alkaline Phosphatase 134 U/L (38-126) H 08/25/24:
Total Protein 6.1 g/dl (6.3-8.2) L 08/25/24:
Albumin 4.4 g/dl (3.5-5.0) 08/25/24 09:
Physical Exam
-
AAOx3
No tachypnea on room air
No tachycardia
Abdomen soft in all 4 quadrants
Right groin mildly tender to palpation, soft
Doppler signals bilaterally
[2024-08-31] MEDS: TYLENOL 650 MG PO ×2 (08:56→21:20)
--- NOTE | 2024-08-31 09:18 | PTCARENOTE ---
pt aaox3. anxious. states she did not sleep well and just wants to go home. wants the a line and sahu out. pt taken to ct scan waiting for results. spoke to vascular IMPLEMENTATION COORDINATOR asked to hold off on removal till ct results back. reviewed condition with
pt and need to wait. ivf running as ordered. bilat groin sites c/d/i. some bruising noted at left groin site. pt states 4/10 pain in bilat groin much better than last night. pulses by doppler
--- NOTE | 2024-08-31 10:22 | PTCARENOTE ---
myranda and luis alberto removed. ivf stopped as ordered. pt now oob in chair. slightly dizzy when standing improved with sitting in chair
--- NOTE | 2024-08-31 10:40 | CM ---
CM following re: discharge planning.
Reviewed pt's chart, met with pt.
Pt is a 63 year old female, admitted with primary dx of POD #1 S/p EVAR with stent placement in the right iliac artery. per Vascular surgery there may be an opportunity for discharge this afternoon. Pt is aware, expressed her agreement and she
stated her son will transport home. IMM reviewed, placed on chart, pt has a copy.
Pt reports she lives alone in a townhouse, 2SH, 3 steps to enter, has 2 supportive children. Pt described herself as independent in all areas [employer]. No DME, VN or SNF history.
PCP: Andreia Morales
pharmacy: [facility]
D/C plan: home with family support. Son to transport.
[2024-08-31 13:14] LABS: Glucose - Point of Care 146 mg/dl (70-99)
--- NOTE | 2024-08-31 14:09 | PTCARENOTE ---
pt called nurse states she tried to get up and felt very dizzy. vital signs checked laying and sitting bp dropped to 77/47 while sitting and pt became dizzy again with blurred vision. pt returned to laying in bed and felt better bp improved.
notified vascular RESEARCH PROGRAM COORDINATOR. will keep pt overnight. explained condition to pt and daughter over phone.
[2024-08-31] MEDS: SOLU-CORTEF 50 MG IV ×2 (14:28→23:18)
[2024-08-31 17:27] LABS: Glucose - Point of Care 204 mg/dl (70-99)
[2024-08-31] MEDS: NOVOLOG FLEXPEN-LOW RESISTANCE 2 UNITS SC (17:48)
--- NOTE | 2024-08-31 20:04 | PTCARENOTE ---
On assessment pt very anxious, AAOx3, denies pain and SOB, MARIE, OOB to chair and bathroom, tolerated well, RA on the monitor, RA, 1999 diabetic diet, voids in toilet, B/L groin site with dermabond and no drainage, ecchymotic around site more on L
than R, + pulses with doppler, denies numbness and tingling, call roa in reach.
[2024-08-31 23:39] LABS: Glucose - Point of Care 120 mg/dl (70-99)
[2024-09-01] VITALS (14 sets, daily range): BP systolic 104–135; BP diastolic 52–74; BMI 30.8
--- NOTE | 2024-09-01 | PTCARENOTE ---
no changes from prior assessment, pt tolerating ambulating with x1 assist, denies pain and SOB at this time, call roa in reach
[2024-09-01 04:00] LABS: Hematocrit 34.7 % (37.0-47.0); Hemoglobin 11.3 g/dL (12.0-16.0); Mean Corp Hgb Conc. 32.6 g/dL (33.0-37.0); Mean Corpuscular Hgb 29.1 pg (27.0-31.0); Mean Corpuscular Volume 89.4 fL (81.0-99.0); Mean Platelet Volume 9.5 fL (7.4-10.4); Platelet Count 290 10^3/uL (130-400); Red Blood Cell Count 3.88 10^6/uL (4.20-5.40); Red Cell Dist. Width 13.2 % (11.5-14.5); White Blood Cell Count 18.8 10^3/uL (4.8-10.8)
[2024-09-01 04:21] LABS: Blood Urea Nitrogen 13 mg/dl (7-17); Calcium 8.6 mg/dl (8.4-10.2); Carbon Dioxide 25 mmol/L (22-30); Chloride 108 mmol/L (98-107); Estimated Creatinine Clearance 107 ml/min; Glucose 117 mg/dl (70-99); Potassium 4.2 mmol/L (3.5-5.1); Sodium 140 mmol/L (135-145); eGFR > 60.00
[2024-09-01] MEDS: SOLU-CORTEF 50 MG IV (05:09)
--- NOTE | 2024-09-01 06:32 | PTCARENOTE ---
pt tolerating being OOB, states feeling 'much better today', call roa in reach
--- NOTE | 2024-09-01 08:24 | W.PN.INTV ---
Today's Communication / Plan
Recommendations
Discontinue hydrocortisone upon discharge (will defer to vascular surgery), and resume home prednisone dose
Continue with Xarelto
Up OOB as tolerated
PT/OT
Encouraged incentive spirometer use
Pain control
Patient is being prepared for discharge home. No additional recommendations at this time. Boilermaker Assembly And Erection/Pulmonary service will now sign off. Please reconsult if there are any additional questions/concerns, or if patient's respiratory status
deteriorates.
Assessment
-
Assessment: 63-year-old female with a past medical history of PAD, history of gastric ulcers, Hx of EAMON no longer on CPAP given resolution of EAMON, non-Hodgkin's lymphoma s/p chemo, hypercholesterolemia, back pain with history of herniated discs,
and DM type II who presents with elective EVAR. Patient known to the vascular surgery service with last visit on 07/13/[address] Pope. Patient's recent CTA abdominal aorta with runoff shows advanced aortic atherosclerotic disease with moderate
stenosis of the infrarenal aorta and high-grade stenosis of the celiac axis, with occlusion of the right common iliac artery and stenosis of the left common iliac artery. Endovascular intervention was reviewed and patient has agreed for a
procedure. On 08/30/2024, she underwent an endovascular aneurysm repair with stent placement in the right iliac artery, with EBL 50 cc and no complications. She was transferred to the ICU postoperatively and labor utilization superintendent services consulted for
additional management/recommendations.
Chronic conditions IT CONSULTING MANAGER: Psoriatic arthritis, history of gastric ulcers, Hx of EAMON no longer on CPAP given resolution of EAMON, history of PE, history of diverticulitis, non-Hodgkin's lymphoma s/p chemo, hypercholesterolemia, PAD, back pain with
history of herniated discs, DM type II
Impression:
#Aortic atherosclerotic disease with occluded right iliac artery s/p EVAR with stent placement in the right iliac artery (POD #2)
#Orthostatic positive on 08/31/2024 likely due to hypovolemia
#Leukocytosis likely reactive
#Hx of EAMON no longer on CPAP given resolution of EAMON
#History of non-Hodgkin's lymphoma s/p chemotherapy
#Back pain with history of herniated disks
#DM type II
Plan:
Postoperative surgical intensive care unit monitoring
Supplemental oxygen as needed to maintain SpO2 >90-94%
prn nebulized bronchodilators � not currently bronchospastic
Incentive spirometry encouraged 10x per hour for at least 4 hrs a day
Aspiration precautions
Pain control
Neuro and vascular checks per protocol
Maintain MAP>65
Replete electrolytes with K>4, Mg>2
Maintain euglycemia with goal BG 140-180
Vascular surgery following-correspondence and operative notes reviewed
Transfuse blood products as needed to keep Hb>7g/dL, and plt>50k (given post-operative status)
Patient was found to be orthostatic positive yesterday --> was started on stress dose steroids ---> this will be stopped upon discharge (defer to vascular surgery)
DVT prophylaxis
Early nutrition
Early mobilization
Patient is being prepared for discharge home. No additional recommendations at this time. [employer]/Pulmonary service will now sign off. Thank you for allowing us to be involved in the care of this patient. Please reconsult if there are any
additional questions/concerns, or if patient's respiratory status deteriorates.
Total time spent today was 27 minutes for this encounter. Time includes reviewing laboratory test/imaging results, reviewing pertinent medical records, obtaining and reviewing medical history, performing an appropriate exam, ordering medications,
tests and procedures. Time also includes documentation of this encounter, coordinating patient care and communicating with other healthcare professionals. Total time does not include separately billed tests performed on this date of service.
Subjective Dataa
Subjective Data
Date of Service:
Date of Service: September 01, 2024
Chief Complaint: Boilermaker Assembly And Erection Follow Up
Subjective:
Patient seen and evaluated this morning. Orthostatic positive yesterday so did not go home. She feels much better today. BP today 110/55. She has doppler pulses on bilateral pedal pulses. Continues to have pain in the right groin as well. She
denies chest pain, CHOUDHURY, nausea, vomiting, fevers or chills.
Review of Systems
General: Other (Negative unless mentioned above)
Objective Data
Data Reviewed
Vital Signs / I&O / Oxygen:
Vital Signs
Temp Pulse Resp BP Pulse Ox
98.3 F 79 18 109/52 96
09/01/24 08:12 09/01/24 09:23 09/01/24 09:23 09/01/24 08:19 09/01/24 08:19
Intake and Output
08/31/24 09/01/24 09/02/24
06:59 06:59 06:59
Intake Total 3910 / 3990 640 / 640
Output Total 2710 / 2860 700 / 700
Balance 1200 / 1130 -60 / -60
SaO2 96
Physical Exam
General: Respiratory Distress (negative), Comfortable, Chills (negative) and Sweats (negative)
HEENT: Normocephalic and Anicteric
Cardiovascular: S1-S2 and Peripheral Edema (negative)
Respiratory: Clear, Wheeze (negative), Crackles (negative), Rhonchi (negative) and Non-Labored Respirations
GI: Soft, Non Distended, Non Tender and Normal Bowel Sounds
Neurology: AO x 3 and Tremors (negative)
Skin: Warm, Dry and Other (Mild tenderness to palpation in the right groin region)
Labs/Micro/Reports
Lab Data
09/01/24 03:50
09/01/24 03:50
--- NOTE | 2024-09-01 08:29 | PN.CDI ---
CDI
- -
CDI:
Physician Documentation Request
Admit Date: 08/30/24 08:52
Dear Vascular Surgery,
08/30 Operative Note: 'Estimated Blood Loss: 50 cc'
08/31 PCN: 'CRIB ATTENDANT aware of bp 91/40, map 55, 1 liter nss hung over 1hr per order'
08/31 PCN: 'pt called nurse states she tried to get up and felt very dizzy. vital signs checked laying and sitting bp dropped to 77/47 while sitting and pt became dizzy again with blurred vision. pt returned to laying in bed and felt better bp
improved.'
Laboratory Tests
08/25/24 09/01/24
03:50
Hgb 15.0 11.3 L
Hct 46.0 34.7 L
Based on the above, could you clarify in the progress notes, the appropriate diagnosis, if significant, that supports the above abnormalities and additional evaluation, monitoring and/or treatment rendered:
Acute anemia multifactorial blood loss and hemodilution
Acute blood loss anemia
Hemodilution
Other
Use of terms such as suspected, likely, concern for, or probable (associated with a specific diagnosis that is being evaluated, monitored, or treated as if it exists) are acceptable and can be coded in the inpatient setting, when documented at the
time of discharge.
Thank you,
Adri Jean Baptiste RN, BSN
CDI Specialist
Available via [place] text
Please use your independent medical judgment in providing your response.
[2024-09-01] MEDS: NOVOLOG FLEXPEN-HIGH RESISTANCE 2 UNITS SC (08:39)
[2024-09-01 08:49] LABS: Glucose - Point of Care 166 mg/dl (70-99)
--- NOTE | 2024-09-01 09:05 | W.PN.VS ---
Addendum entered and electronically signed by Aleksander Pope III, MD 09/01/24 11:26:
This patient was seen and examined in collaboration with JULIO Coronado. I agree with the history and physical exam as well as the assessment and plan. I have the following additions:
Looks much better today with respect to blood pressure
Less pain
Labs reviewed
Plan for discharge later today on Compass protocol
Signed:
Aleksander Pope III, MD
[facility] Vascular Surgery
[phone] (cell)
Original Note:
Today's Communication / Plan
-
Patient seen and examined at bedside with Dr. Aleksander Pope III, below plan reviewed with attending.
Assessment/Plan
-
POD2
Aortoiliac stent grafting with Endologix AFX device (25-70/16-30 main body; 28-75 suprarenal extension)
Balloon angioplasty and stenting of right distal common iliac artery and iliac bifurcation (8 mm x 37 mm express LD)
Pro-glide closure of bilateral femoral artery access sites
Plan:
-Will initiate p.o. steroid taper as we suspect orthostasis and low BP was related to requirement of stress dosing as patient has been on steroids for greater than 2 weeks in the outpatient setting
-Given metformin is on hold and patient will require increase steroid usage will ask diabetes nurse practitioner to evaluate to see if further medication or home glucose monitoring is required
-Will likely discharge later this afternoon
Subjective Data
-
Date of Service: September 01, 2024
Patient seen and examined at bedside, reports feeling remarkably better in comparison to yesterday right lower quadrant pain now completely resolved and reports no longer experiencing orthostasis with position changes. She reports she is eager for
discharge to home when deemed stable. Tolerating p.o. diet, denies nausea, vomiting, fever, and chills.
Objective Data
-
Vital Signs
Temp Pulse Resp BP Pulse Ox
98.3 F 94 18 109/52 96
09/01/24 08:12 09/01/24 08:19 09/01/24 08:19 09/01/24 08:19 09/01/24 08:19
Intake and Output
08/31/24 09/01/24 09/02/24
06:59 06:59 06:59
Intake Total 3910 / 3990 640 / 640
Output Total 2710 / 2860 700 / 700
Balance 1200 / 1130 -60 / -60
Intake:
Oral fluids 1580 / 1580 400 / 400
IV fluids (Total) 2330 / 2410 240 / 240
NSS bolus 1000 / 1000
Nss 1,000 ml @ 80 mls/hr IV . 1280 / 1360 240 / 240
[id number] [facility] Rx#:[id number]
normosol 50 / 50
Output:
Urine, Pope 2710 / 2710 250 / 250
Urine, Voided 450 / 450
Other:
Number of approximated MODERATE 1
amounts of urine
Number of approximated LARGE 3
amounts of urine
Lab Results
09/01/24 03:50
09/01/24 03:50
Calcium 8.6 mg/dl (8.4-10.2) 09/01/24 03:50
Phosphorus 4.6 mg/dl (2.5-4.5) H 08/30/24 17:09
Magnesium 2.0 mg/dl (1.6-2.3) 08/30/24 17:09
Total Bilirubin 0.7 mg/dl (0.2-1.3) 08/25/24 09:26
Direct Bilirubin 0.2 mg/dl (0.0-0.4) 08/25/24 09:26
AST 14 U/L (14-36) 08/25/24 09:26
ALT 18 U/L (0-35) 08/25/24 09:26
Alkaline Phosphatase 134 U/L (38-126) H 08/25/24 09:26
Total Protein 6.1 g/dl (6.3-8.2) L 08/25/24 09:
Albumin 4.4 g/dl (3.5-5.0) 08/25/24 09:
Physical Exam
-
AAOx3
No tachypnea on room air
No tachycardia
Abdomen soft in all 4 quadrants
Right groin without tenderness, soft
Doppler signals bilaterally
Bilateral feet warm
[2024-09-01] MEDS: CYMBALTA DELAYED RELEASE 60 MG PO (09:18)
[2024-09-01] MEDS: COLACE 100 MG PO (09:19)
[2024-09-01] MEDS: LOW STRENGTH ASPIRIN 81 MG PO (09:19)
[2024-09-01] MEDS: PROTONIX 40 MG PO (09:19)
[2024-09-01] MEDS: XARELTO 2.5 MG PO (09:20)
[2024-09-01 11:48] LABS: Glycohemoglobin (HgbA1c) 5.4 % (4.0-5.6)
--- NOTE | 2024-09-01 12:26 | PTCARENOTE ---
Patient is walking around the room, voiding in bathroom independently, and denies pain. Groin access sites are c/d/i with minor bruising on left groin more than right. Pulses are weak on palpation. RN educated patient on medications, plan of care,
disease processes. Diabetic nurse educator consult ordered as patient is interested in possibly learning to check her glucose at home moving forward. Pt is not having any dizziness/hypotensive episodes thus far in shift, vascular team will come back
this afternoon and may discharge patient.
[2024-09-01 12:30] LABS: Glucose - Point of Care 97 mg/dl (70-99)
--- NOTE | 2024-09-01 12:37 | PN.DE.MGMTRT ---
Insulin Management
- -
09/01/2024 Diabetes Management Consult
Patient admitted 08/30 for Balloon angioplasty & stent to R distal common iliac artery. PMH non Hodgekins lymphoma - chemo, HCL, PAD, diabetes, diverticulitis, gastric ulcers, psoriatic arthritis, EAMON w CPAP, s/p pulmonary embolism. A1C on
admission 5.4% cr .6, eGFR > 60. Prior to admission was taking metformin 500 mg BID and Ozempic 1 mg on Thursday.
Patient is awake alert and oriented oob in chair. Able to discuss diabetes management. Patient states she sees Dr. Jaimes for weight loss and an press operator printing at [address] for her thyroid.
Patient is receiving steroids, concern for elevated glucose, patient did eat full breakfast before glucose checked this AM 166. Will not resume home meds until discharge. Discussed with patient importance of glucose monitor. She would prefer to
order one from [employer]. Advised if she had trouble with performing the test I would assist as outpatient.
Will continue high corrective insulin only at this time. Patient to resume Ozempic tomorrow as well as metformin 500 mg BID.
Diabetes History
- -
Type of Diabetes: 2
Pre-Admission Diabetes Regimen
09/01/24
03:50
Creatinine 0.6
Lab Results
Hemoglobin A1c 5.4 % (4.0-5.6) 09/01/24 03:50
Insulin Pump Settings
IP Diabetes Regimen
08/31/24 08/31/24 08/31/24
13:02 17:12 23:25
Glucose
POC Glucose 146 H 204 H 120 H
09/01/24 09/01/24 09/01/24
03:50 08:36 12:19
Glucose 117 H
POC Glucose 166 H 97
Meal type: Lunch
Amount consumed: 100%
Patient Education
[2024-09-01] MEDS: DELTASONE 40 MG PO (12:39)
[2024-09-01] MEDS: NOVOLOG FLEXPEN-HIGH RESISTANCE 1 UNITS SC (12:39)
--- NOTE | 2024-09-01 13:30 | W.DS.TRANS ---
DC Summary - [place]
-
Discharge Instructions:
Discharge Diagnosis/Procedures Aortoiliac stent grafting with Endologix AFX
device
Balloon angioplasty and stenting of right distal
common iliac artery and iliac bifurcation
Pro-glide closure of bilateral femoral artery
access sites
Diet As tolerated
Activity No strenuous activity
Driving Restrictions No driving for 1 week
Bathing Restrictions OK to Shower
Instructions:
Stand-Alone Forms: DC Instr - Vascular OR
Changes to Home Medications: Yes
Discharge Medications:
DC Medications w/original date entered in [employer]
aspirin 81 mg capsule 81 mg PO DAILY Blood Clot Prevention/Tx 06/23/24
duloxetine 60 mg capsule,delayed release 60 mg PO DAILY Mental Health/Anxiety 08/18/24
ibuprofen 200 mg tablet (Advil) 400 mg PO Q6H PRN pain 08/18/24
inclisiran 284 mg/1.5 mL subcutaneous syringe (Leqvio) 284 mg SC [id number] High Cholesterol 08/18/24
prednisone 5 mg tablet 5 mg PO DAILY INFLAMMATION 08/18/24
semaglutide 1 mg/dose (4 mg/3 mL) subcutaneous pen injector (Ozempic) 1 mg SC SA Diabetes 08/18/24
metformin 500 mg tablet,extended release 24 hr 500 mg PO BID Diabetes 08/30/24
rivaroxaban 2.5 mg tablet (Xarelto) 2.5 mg PO BID #120 tabs 08/31/24
pantoprazole 40 mg tablet,delayed release 40 mg PO DAILY #60 tabs 09/01/24
prednisone 5 mg tablet 5 mg PO DIRECTED #12 tabs 09/01/24
Home Medication Changes
Prednisone taper added
Protonix added
Xarelto twice daily added
Pending Results: No
--- NOTE | 2024-09-01 14:01 | CM ---
CM following re: discharge planning.
Reviewed pt's chart, met with pt.
Discharge order noted. Pt is aware, expressed her agreement with discharge and she stated her son is coming to transport home.
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
D/C plan: home with family support. Son to transport.
--- NOTE | 2024-09-01 14:28 | W.PN.UPDATE ---
Update Note
Progress Note Update
CDI:
Physician Documentation Request
Admit Date: 08/30/24 08:52
08/30 Operative Note: 'Estimated Blood Loss: 50 cc'
08/31 PCN: 'TELEVISION INSTALLER HELPER aware of bp 91/40, map 55, 1 liter nss hung over 1hr per order'
08/31 PCN: 'pt called nurse states she tried to get up and felt very dizzy. vital signs checked laying and sitting bp dropped to 77/47 while sitting and pt became dizzy again with blurred vision. pt returned to laying in bed and felt better bp
improved.'
Laboratory Tests
08/25/24 09/01/24
03:50
Hgb 15.0 11.3 L
Hct 46.0 34.7 L
Based on the above, could you clarify in the progress notes, the appropriate diagnosis, if significant, that supports the above abnormalities and additional evaluation, monitoring and/or treatment rendered:
Other: Surgical procedure was 08/30/24 when pre-op hgb was 12. post op hgb 11.3. Insignificant finding.
== END 2024-09-01 15:38 | disposition home or self-care (01) | DRG 269 ==
LOC: ICU 08:52
PROVIDERS: Nurse Practitioner; ADMITTING PHYSICIAN Surgery Vascular Surgery; CONSULT PHYSICIAN Internal Medicine Critical Care Medicine; FAMILY PHYSICIAN Family Medicine
PROC: B4101ZZ Fluoroscopy of Abdominal Aorta using Low Osmolar Contrast (ICD-10-PCS; 2024-08-30)
PROC: 047C3DZ Dilation of Right Common Iliac Artery with Intraluminal Device, Percutaneous Approach (ICD-10-PCS; 2024-08-30)
PROC: 04V03DZ Restriction of Abdominal Aorta with Intraluminal Device, Percutaneous Approach (ICD-10-PCS; 2024-08-30)
PROC: B41FZZZ Fluoroscopy of Right Lower Extremity Arteries (ICD-10-PCS; 2024-08-30)
DX: I70.0 Atherosclerosis of aorta (principal); I74.5 Embolism and thrombosis of iliac artery; I73.9 Peripheral vascular disease, unspecified; E78.00 Pure hypercholesterolemia, unspecified; G47.33 Obstructive sleep apnea (adult) (pediatric); M54.9 Dorsalgia, unspecified; D72.829 Elevated white blood cell count, unspecified; L40.50 Arthropathic psoriasis, unspecified; E11.9 Type 2 diabetes mellitus without complications; R10.31 Right lower quadrant pain; Z60.2 Problems related to living alone; Z87.891 Personal history of nicotine dependence; Z80.0 Family history of malignant neoplasm of digestive organs; Z82.0 Family history of epilepsy and other diseases of the nervous system; Z82.49 Family history of ischemic heart disease and other diseases of the circulatory system; Z87.11 Personal history of peptic ulcer disease; Z92.21 Personal history of antineoplastic chemotherapy; Z85.72 Personal history of non-Hodgkin lymphomas; Z82.62 Family history of osteoporosis; Z82.3 Family history of stroke; Z88.1 Allergy status to other antibiotic agents; Z88.5 Allergy status to narcotic agent; Z86.711 Personal history of pulmonary embolism; Z90.49 Acquired absence of other specified parts of digestive tract; Z98.1 Arthrodesis status; Z79.82 Long term (current) use of aspirin; Z79.85 Long-term (current) use of injectable non-insulin antidiabetic drugs; Z79.84 Long term (current) use of oral hypoglycemic drugs; Z79.52 Long term (current) use of systemic steroids; Z87.19 Personal history of other diseases of the digestive system
CPT/HCPCS: 36415; 37221; 37236; 71045; 74174; 80048; 80053; 82248; 82962; 83036; 83735; 84100; 85014; 85018; 85025; 85027; 85610; 85730; 86803; 86850; 86900; 86901; 93005; 93926; C1725; C1760; C1768; C1769; C1773; C1876; C1894; C2628; Q9967

== ENCOUNTER → 2024-09-14 11:29 | Outpatient (REF) | payer MEDICARE, BC, SELFPAY ==
[2024-09-14 12:06] LABS: % Basophils 0.4 % (0-2); % Eosinophils 1.3 % (0-6); % Immature Granulocytes 0.4 % (0-0.5); % Lymphocytes 11.2 % (20.5-51.1); % Monocytes 7.5 % (1.7-9.3); % Neutrophils 79.2 % (42.2-75.2); Absolute Basophils 0.1 10^3/uL (0-0.2); Absolute Eosinophils 0.2 10^3/uL (0-0.7); Absolute Immature Granulocytes 0.1 10^3/uL (0-0.05); Absolute Lymphocytes 1.8 10^3/uL (1.2-3.4); Absolute Monocytes 1.2 10^3/uL (0.1-0.6); Absolute Neutrophils 12.5 10^3/uL (1.4-6.5); Hematocrit 40.3 % (37.0-47.0); Mean Corp Hgb Conc. 32.3 g/dL (33.0-37.0); Mean Corpuscular Hgb 28.5 pg (27.0-31.0); Mean Corpuscular Volume 88.4 fL (81.0-99.0); Mean Platelet Volume 8.8 fL (7.4-10.4); Nucleated Red Blood Cells % 0 %; Platelet Count 423 10^3/uL (130-400); Red Blood Cell Count 4.56 10^6/uL (4.20-5.40); Red Cell Dist. Width 13.2 % (11.5-14.5); White Blood Cell Count 15.8 10^3/uL (4.8-10.8)
[2024-09-14 12:46] LABS: Blood Urea Nitrogen 17 mg/dl (7-17); Calcium 9.8 mg/dl (8.4-10.2); Carbon Dioxide 26 mmol/L (22-30); Chloride 100 mmol/L (98-107); Glucose 105 mg/dl (70-99); Potassium 4.7 mmol/L (3.5-5.1); Sodium 137 mmol/L (135-145); eGFR > 60.00
== END ==
LOC: REG 11:29
PROVIDERS: ATTENDING PHYSICIAN Physician Assistant; FAMILY PHYSICIAN Family Medicine
DX: N28.0 Ischemia and infarction of kidney (principal)
CPT/HCPCS: 36415; 80048; 85025

== ENCOUNTER 2024-09-15 11:28 | Outpatient (RCR) | payer MEDICARE, BC, SELFPAY ==
[2024-09-15 11:50] VITALS: BP 110/65
[2024-09-15] MEDS: LEQVIO 284 MG SC (12:06)
== END 2024-09-16 08:24 | disposition home or self-care (01) ==
LOC: OID 11:28
PROVIDERS: ATTENDING PHYSICIAN Nurse Practitioner; FAMILY PHYSICIAN Internal Medicine Cardiovascular Disease
DX: E78.01 Familial hypercholesterolemia (principal); I73.9 Peripheral vascular disease, unspecified; R73.01 Impaired fasting glucose
CPT/HCPCS: 96372; J1306

== ENCOUNTER → 2024-09-30 07:22 | Outpatient (REF) | payer MEDICARE, BC, SELFPAY | LOC: RAD 07:22 | PROVIDERS: ATTENDING PHYSICIAN Physician Assistant; FAMILY PHYSICIAN Family Medicine | DX: I77.9 Disorder of arteries and arterioles, unspecified (principal) | CPT/HCPCS: 74174; 93922; Q9967 ==

== ENCOUNTER → 2024-11-17 15:29 | Outpatient (REF) | payer MEDICARE, BC, SELFPAY ==
[2024-11-17 16:49] LABS: % Basophils 0.2 % (0-2); % Eosinophils 1.1 % (0-6); % Immature Granulocytes 0.4 % (0-0.5); % Lymphocytes 13.3 % (20.5-51.1); % Monocytes 6.1 % (1.7-9.3); % Neutrophils 78.9 % (42.2-75.2); Absolute Eosinophils 0.1 10^3/uL (0-0.7); Absolute Immature Granulocytes 0.1 10^3/uL (0-0.05); Absolute Lymphocytes 1.8 10^3/uL (1.2-3.4); Absolute Monocytes 0.8 10^3/uL (0.1-0.6); Absolute Neutrophils 10.4 10^3/uL (1.4-6.5); Hemoglobin 15.4 g/dL (12.0-16.0); Mean Corp Hgb Conc. 32.1 g/dL (33.0-37.0); Mean Corpuscular Hgb 27.7 pg (27.0-31.0); Mean Corpuscular Volume 86.5 fL (81.0-99.0); Mean Platelet Volume 9.3 fL (7.4-10.4); Nucleated Red Blood Cells % 0 %; Platelet Count 339 10^3/uL (130-400); Red Blood Cell Count 5.55 10^6/uL (4.20-5.40); Red Cell Dist. Width 14.8 % (11.5-14.5); White Blood Cell Count 13.2 10^3/uL (4.8-10.8)
[2024-11-17 16:56] LABS: ALT (SGPT) 19 U/L (0-35); AST (SGOT) 16 U/L (14-36); Albumin 4.8 g/dl (3.5-5.0); Alkaline Phosphatase 121 U/L (38-126); Blood Urea Nitrogen 19 mg/dl (7-17); Calcium 10.1 mg/dl (8.4-10.2); Carbon Dioxide 26 mmol/L (22-30); Chloride 107 mmol/L (98-107); Glucose 85 mg/dl (70-99); Potassium 4.8 mmol/L (3.5-5.1); Sodium 143 mmol/L (135-145); Total Bilirubin 0.3 mg/dl (0.2-1.3); Total Protein 6.7 g/dl (6.3-8.2); eGFR > 60.00
[2024-11-17 17:31] LABS: Erythrocyte Sed Rate 8 mm/hour (0-20)
== END ==
LOC: REG 15:29
PROVIDERS: ATTENDING PHYSICIAN Internal Medicine; FAMILY PHYSICIAN Family Medicine
DX: L40.50 Arthropathic psoriasis, unspecified (principal); L40.59 Other psoriatic arthropathy
CPT/HCPCS: 36415; 80053; 85025; 85652; 86140

== ENCOUNTER → 2025-02-07 11:52 | Outpatient (REF) | payer MEDICARE, BC, SELFPAY ==
[2025-02-07 12:42] LABS: Hematocrit 45.4 % (37.0-47.0); Hemoglobin 15.0 g/dL (12.0-16.0); Mean Corp Hgb Conc. 33.0 g/dL (33.0-37.0); Mean Corpuscular Volume 87.3 fL (81.0-99.0); Nucleated Red Blood Cells % 0 %; Platelet Count 264 10^3/uL (130-400); Red Cell Dist. Width 14.4 % (11.5-14.5)
[2025-02-07 15:47] LABS: C-Reactive Protein < 5.00 mg/L (0.0-10.00)
[2025-02-07 16:29] LABS: ALT (SGPT) 20 U/L (0-35); AST (SGOT) 18 U/L (14-36); Albumin 4.5 g/dl (3.5-5.0); Alkaline Phosphatase 98 U/L (38-126); Blood Urea Nitrogen 16 mg/dl (7-17); Calcium 9.1 mg/dl (8.4-10.2); Carbon Dioxide 25 mmol/L (22-30); Chloride 107 mmol/L (98-107); Glucose 80 mg/dl (70-99); HDL Cholesterol 52 mg/dl; LDL Cholesterol, Calculated 143 mg/dl; Potassium 4.4 mmol/L (3.5-5.1); Sodium 141 mmol/L (135-145); Total Protein 6.3 g/dl (6.3-8.2); Very Low Density Lipoprotein 28 mg/dl (0-30); eGFR > 60.00
== END ==
LOC: REG 11:52
PROVIDERS: ATTENDING PHYSICIAN Internal Medicine; FAMILY PHYSICIAN Family Medicine; OTHER PHYSICIAN Internal Medicine Cardiovascular Disease
DX: L40.50 Arthropathic psoriasis, unspecified (principal); E78.01 Familial hypercholesterolemia
CPT/HCPCS: 36415; 80053; 80061; 85025; 85652; 86140

== ENCOUNTER 2025-03-20 11:14 | Outpatient (RCR) | payer MEDICARE, BC, SELFPAY ==
[2025-03-20 11:25] VITALS: BP 117/66
[2025-03-20] MEDS: LEQVIO 284 MG SC (11:35)
== END 2025-03-21 09:42 | disposition home or self-care (01) ==
LOC: OID 11:14
PROVIDERS: ATTENDING PHYSICIAN Nurse Practitioner; FAMILY PHYSICIAN Internal Medicine Cardiovascular Disease
DX: E78.01 Familial hypercholesterolemia (principal); I73.9 Peripheral vascular disease, unspecified
CPT/HCPCS: 96372; J1306

== ENCOUNTER → 2025-03-28 10:27 | Outpatient (REF) | payer MEDICARE, BC, SELFPAY | LOC: RAD 10:27 | PROVIDERS: ATTENDING PHYSICIAN Surgery Vascular Surgery | DX: I70.0 Atherosclerosis of aorta (principal); I77.9 Disorder of arteries and arterioles, unspecified | CPT/HCPCS: 76770; 93922 ==

== ENCOUNTER 2025-04-19 19:45 | Emergency (ER) | payer MEDICARE, BC, SELFPAY ==
[2025-04-19 19:48] VITALS: BP 149/84
--- NOTE | 2025-04-19 21:23 | ED.GENMED ---
History of Present Illness
General
Chief Complaint: Vascular Access Problem
Source: patient
Exam Limitations: none
Time Seen by Provider: 04/19/25 20:52
Nursing documentation reviewed up to this point in time: agreed with
History of Present Illness
History of Present Illness:
Patient is a 64-year-old female with history of PAD on Plavix, CAD, psoriatic arthritis on Remicade infusions who presents to the emergency department for evaluation of bleeding port site on right upper chest wall. Patient states that she had her
port accessed earlier this afternoon for her regularly scheduled Remicade infusion. The nurse who accessed her port apparently did miss on the first 2 attempts. After the infusion, she states she had slow oozing of blood from the port site which
persisted throughout the day. She describes a slow trickle that she was unable to stop at home. She denies any fever, chills. She denies any numbness/tingling or weakness in extremities. No significant pain around port site.
She contacted her primary care provider after hours who recommended evaluation in the emergency department.
Patient states she has had this port for many years. She has a past history of non-Hodgkin's lymphoma and now currently uses the port for Remicade infusions to treat her psoriatic arthritis. She has never had a problem with persistent bleeding
from port site.
Patient did have a stent placed in the right distal common iliac artery in 08/30 due to PAD and now takes Plavix and aspirin.
Past History
Past History
ED Past Medical History: None and Other (Lymphoma)
ED Past Surgical History: None and Other (Hernia, pancreatic stent)
Social History
Tobacco: Smoker
Alcohol: None
Drug: None
Living: with family
Employment: Employed
Family History
Family History: Negative Early CAD
Review of Systems
Review of Systems
Allergies reviewed?: Yes
All Other Systems: ROS reviewed and negative except as documented in HPI and ROS
Phy Exam
Physical Exam
Physical Exam:
Vitals: Hypertensive, otherwise vital signs are stable. Afebrile
General: Patient is very well appearing, no acute distress. Nontoxic appearing
Skin: Port site and right upper chest wall. Pinpoint area of dried blood at access site without any active bleeding. No surrounding swelling, erythema, or tenderness.
Head: Normocephalic, atraumatic
Throat: Protecting airway
Neck: Normal ROM, no cervical spine tenderness
Cardiac: Regular rate. Right upper chest wall port site without any evidence of active bleeding. 2+ palpable radial pulses bilaterally
Pulm: No apparent respiratory distress
Abdomen: Nondistended
Extremities: No evidence of cyanosis or edema. Distal pulses
Neuro: Grossly intact
Psychiatric: Normal affect.
Course
Vital Signs
Initial and Last Documented VS:
Initial Vital Signs
Temp Pulse Resp BP Pulse Ox
98.2 F 94 20 149/84 95
04/19/25 19:48 04/19/25 19:48 04/19/25 19:48 04/19/25 19:48 04/19/25 19:48
Last Documented Vital Signs
Temp Pulse Resp BP Pulse Ox
98.2 F 94 20 149/84 95
04/19/25 19:48 04/19/25 19:48 04/19/25 19:48 04/19/25 19:48 04/19/25 21:24
MDM/Problems Addressed
Differential Diagnosis Includes:
Not limited to: Traumatic port site access, medication side effect, hematoma, etc.
MDM/Problems Addressed:
64-year-old female presents with concern for persistent bleeding from her right chest wall port, which was accessed earlier today for a scheduled Remicade infusion. She reports oozing from the port access site throughout the afternoon and evening.
Bleeding had resolved prior to ED evaluation.
On presentation, patient is hemodynamically stable. Physical exam reveals a pinpoint area of dried blood at the port access site. No active bleeding observed. No significant tenderness, hematoma, surrounding erythema, or signs of infection. No
evidence of vascular compromise.
The bleeding is most likely secondary to minor trauma from multiple failed access attempts earlier today, with increased bleeding tendency likely exacerbated by concurrent use of Plavix and aspirin (history of PAD).
No ongoing bleeding at this time. Given stable exam and no signs of infection or complication, patient is deemed safe for discharge. Advised to continue antiplatelet therapy as prescribed. Return precautions discussed, including signs of
re-bleeding, infection, or vascular compromise. Patient verbalized understanding and is comfortable with discharge plan.
Chronic conditions affecting care:
PAD on Plavix, psoriatic arthritis on Remicade infusion
Acute Exacerbation and/or Progression of Chronic Illness:
N/A
*Pulse Oximetry
SaO2: 95
Oxygen Mode of Delivery: Room air
Patient hypoxic: no
*EKG
Interpreted by ED Provider?: NA
*Crude Unit Operator Interpretation
Rate: Crude Unit Operator- N/A
*Critical Care Note
Total Time (30-74mins, 75-104mins- exclusive of procedures): Not Applicable
ED Attending Note
-
Portions of this chart may have been created with voice recognition software.� Occasional wrong word or��sound alike� substitutions may have occurred due to the inherent limitations of voice recognition software.
Discharge Plan
Departure
Patient Disposition: Home (Routine Discharge)
Date of Disposition: 04/19/25
Time of Disposition: 21:06
Patient with high blood pressure during this ER visit?: Yes
Condition: Good
Discharge Problem:
Vascular port complication
Instructions: BLOOD PRESSURE
Prescriptions:
No Action
aspirin 81 mg Capsule
81 mg PO DAILY
duloxetine 60 mg Capsule,Delayed Release(Dr/Ec)
60 mg PO DAILY
Ozempic 1 mg/dose (4 mg/3 mL) Pen Injector
1 mg SC SA
Leqvio 284 mg/1.5 mL Syringe
284 mg SC .[id number]
Patient Comments:
RECEIVES IN OID
metformin 500 mg Tablet Extended Release 24 Hr
500 mg PO BID
multivitamin Tablet
1 tab PO DAILY
clopidogrel 75 mg Tablet
75 mg PO DAILY
infliximab [Remicade] 100 mg Recon Soln
100 mg IV .[id number]
ezetimibe 10 mg Tablet
10 mg PO DAILY
Referrals:
Aleksander Pope III, MD [Family Provider, Vascular Surgery]
Activity Restrictions/Additional Instructions:
RETURN TO THE EMERGENCY DEPARTMENT WITH ANY BLEEDING THAT YOU CANNOT GET TO STOP AT HOME, SIGNIFICANT REDNESS, WARMTH, BRUISING, OR SWELLING AROUND PORT SITE, WORSENING IN CURRENT SYMPTOMS, OR ANY OTHER CONCERNS
- As discussed�it is very important that you continue to take your Plavix as directed.
- If you have any additional bleeding the port site you can try to apply direct pressure and if this is unsuccessful please visit your primary care or return to the emergency department for further evaluation.
Monitor your symptoms closely and return to the emergency department with any acute worsening/new symptoms or any other concerns
Interventions
Interventions:
*General Assessment Last Done: 04/19/25 19:48
*Nursing Disposition Last Done: 04/19/25 21:17
Discharge Date and Time
Discharge Date/Time: 04/19/25 21:18
Print Language: [id number]
== END 2025-04-19 21:18 | disposition home or self-care (01) ==
LOC: EMR 19:45
PROVIDERS: EMERGENCY PHYSICIAN Emergency Medicine; FAMILY PHYSICIAN Surgery Vascular Surgery
DX: T82.838A Hemorrhage due to vascular prosthetic devices, implants and grafts, initial encounter (principal); Y83.8 Other surgical procedures as the cause of abnormal reaction of the patient, or of later complication, without mention of misadventure at the time of the procedure; I25.10 Atherosclerotic heart disease of native coronary artery without angina pectoris; L40.50 Arthropathic psoriasis, unspecified; I73.9 Peripheral vascular disease, unspecified; Z79.02 Long term (current) use of antithrombotics/antiplatelets; F17.200 Nicotine dependence, unspecified, uncomplicated; Z85.72 Personal history of non-Hodgkin lymphomas
CPT/HCPCS: 99282